=== PATIENT | female | born 1975 | race Hispanic/Latino ===

== ENCOUNTER 2024-04-26 23:50 | Emergency (ER) | payer BC ==
[~2024-04-26] VITALS: Ht 157.5 cm; Wt 62.6 kg
[2024-04-26 23:57] VITALS: PULSE 89; RESP 16; TEMP 97.8
[2024-04-27] MEDS: LIDOCAINE HCL 1% LOCAL INJ 20 ML VIAL INJ STA (00:41)
[2024-04-27 00:42] VITALS: PULSE 69; RESP 19; O2SAT 100
== END 2024-04-27 00:42 | disposition home or self-care (01) ==
LOC: ER 04-27 00:03
DX: K64.8 Other hemorrhoids (principal); D64.9 Anemia, unspecified; E78.5 Hyperlipidemia, unspecified
CPT/HCPCS: 99282